=== PATIENT | male | born 1945 | race Caucasian/White ===

== ENCOUNTER → 2017-04-30 16:35 | Outpatient (CLI) | payer MEDICARE ==
[2016-04-07 13:43] VITALS: BMI 40.8
[~2017-04-30 16:35] MED LIST: ADIPEX-P37.5 M1 PO; BAYER CHEWABLE81 MG PO; CHERATUSSIN AC473 ML PO; CIALIS5 MG PO; ELIQUIS2.5 MG PO; HYDROCODONE-APA1 TAB PO; IBUPROFEN800 MG PO; ISORDIL5 MG; ISORDIL5 MG PO; LANTUS INSULIN10 ML SC; LANTUS SOL100 UNIT/1 SC; LASIX20 MG PO; NUCYNTA75 MG PO; OXYCODONE HCL5 MG PO; PLAVIX75 MG PO; PREDNISONE10 MG; PROTONIX40 MG PO; STERAPRED DS 1210 MG PO; SYMBICORT 16010.2 GM INH; VENTOLIN HFA18 GM INH; ZESTRIL20 MG PO; ZITHROMAX250 MG PO
[2017-04-30 17:46] LABS: HEMOGLOBIN A1C 9.7 % (4.8-6.0)
== END | disposition home or self-care (01) ==
LOC: D.LABREF 16:35
PROVIDERS: Family Medicine
DX: E11.9 Type 2 diabetes mellitus without complications (principal)

== ENCOUNTER 2018-07-01 09:12 | Outpatient (CLI) | payer MEDICARE ==
[~2018-07-01] VITALS: Ht 182.9 cm; Wt 139.1 kg
--- NOTE | ~2018-07-01 | HEMODYNAMI ---
PATIENT:IDALIA CASTRO MEDICAL RECORD: [id number] : 49 LOCATION:[facility] ADMISSION DATE: 07/01/18 Generatedon:07/01/201812:57 Patient name: IDALIA CASTRO Patient #: [id number] SSN: : 1945 Date of study: 07/01/2018 Page: Of Hemodynamic Procedure Report Patient Data Patient Demographics Procedure consent was obtained First Name: IDALIA Gender: Male Last Name: MATTHEW : 1945 [facility] Initial: BILL Age: 73 year(s) Patient #: [id number] Race: Additional ID: [id number] Contact details Address: [address] [place] [address] State: [place] City: [facility] Zip code: [address] Past Medical History History of disease Date Diagnosis Comments CAD COPD Allergies: No known allergies Admission Admission Data Admission Date: 07/01/2018 Admission Time: 9:12 Arrival Date: 07/01/2018 Arrival Time: 11:00 Admit Source: Other Insurance Payor: Medicare Height (in.): 72 BSA: 2.63 (m2) Height (cm.): 182.88 BMI: 44.35 (kg/m2) Weight (lbs.): 327 Weight (kg.): 148.32 Lab Results Lab Result Date: 07/01/2018 Lab Result Time: 0:00 Biochemistry Name Units Result Min Max BUN mg/dl 37 --(----)-* 7 18 Creatinine mg/dl 1.4 --(----)*- 0.6 1.3 CBC Name Units Result Min Max Hemoglobin g/dl 13.4 -*(----)-- 13.5 17.5 Procedure Procedure Types Cath Procedure Diagnostic Procedure [facility] w/Coronaries FFR/IVUS Intra-Coronary IVUS Initial Sedation Charges Moderate Sedation up to 15 minutes PCI Procedure Coronary Stent Coronary Stent Initial Procedure Description Procedure Date Procedure Date: 07/01/2018 Procedure Start Time: 12:38 Procedure End Time: 12:56 Procedure Staff Name Function Jairo Ewing MD Performing Physician Suzan Tobar RT Monitor Melita Allen RT Scrub Maximus Arita RN Nurse Procedure Data Cath Procedure Fluoroscopy Diagnostic fluoroscopy Total fluoroscopy Time: 4.2 time: 4.2 min min Diagnostic fluoroscopy Total fluoroscopy dose: dose: 1642 mGy 1642 mGy Contrast Material Contrast Material Type Amount (ml) Isovue 300 92 Entry Location Entry Primary Successful Side Size Upsize Upsize Entry Closure Donahue ccessful Closure Location (Fr) 1 (Fr) 2 (Fr) Remarks Device Remarks Radial Right 6 Fr Mechanical artery Short Compression Estimated blood loss: 10 ml Diagnostic catheters Device Type Used For End Catheter Placement DIAGNOSTIC [place] 110cm 5 Procedure Fr catheter ([id number]) Procedure Complications No complications Procedure Medications Medication Administration Route Dosage Oxygen etCO2 Nasal cannula 2 l/min Lidocaine 2% added to field 20 Heparin Flush Bag added to field 2 bags (1000units/500ml NS) 0.9% NaCl I.V. 100 ml/hr Radial Cocktail I.A. 1 syringe (Verapomil 2mg/Nitro 400mcg/Heparin 1500units) Versed I.V. 1 mg Fentanyl I.V. 50 mcg Heparin Bolus I.V. 4000 units Versed I.V. 1 mg Fentanyl I.V. 50 mcg Hemodynamics Rest BSA: 2.63 (m2) HGB: 13.4 (g/dl) O2 Consumption: Estimated: 311.19 (ml/min) O2 Co nsumption indexed: Estimated:118.32 (ml/min/m) Heart Rate: 77 (bpm) Snapshots Pre Cath Intra NCS Post Cath Vital Signs Time Heart Resp SPO2 etCO2 NIBP Rhythm Pain Sedation Rate (ipm) (%) (mmHg) (mmHg) Status Level (bpm) 12:27:29 74 11 93 0 119/72(92) NSR 0 (11) 10(A) , No pain 12:31:39 77 14 92 29.1 114/73(94) NSR 0 (11) 10(A) , No pain 12:35:53 74 13 95 10.4 122/62(90) NSR 0 (11) 10(A) , No pain 12:40:09 78 13 92 24.6 105/59(85) NSR 0 (11) 9(A) , No pain 12:44:17 85 13 92 18.6 106/54(78) NSR 0 (11) 9(A) , No pain 12:48:29 82 12 94 39.6 110/53(79) NSR 0 (11) 9(A) , No pain 12:52:41 83 13 96 42.6 107/58(73) NSR 0 (11) 10(A) , No pain 12:56:51 80 14 96 12.7 111/60(81) NSR 0 (11) 10(A) , No pain Medications Time Medication Route Dose Verified Delivered Reason Not es Effectiveness by by 12:28:57 Oxygen etCO2 2 l/min Jairoshelly Stroud used for Nasal Gildardo Arita RN procedure cannula 12:29:05 Lidocaine 2% added 20ml Jairo Jairo for local to vial Gildardo Ewing MD anesthetic field 12:29:10 Heparin Flush added 2 bags Jairo Gill used for Bag to Gildardo Ewing MD procedure (1000units/500ml field NS) 12:29:19 0.9% NaCl I.V. 100 Jairoshelly Stroud Per physician ml/hr Gildardo Arita RN 12:29:36 Radial Cocktail I.A. 1 Jairoshelly Gill for (Verapomil syringe Gildardo Ewing MD vasodilation 2mg/Nitro 400mcg/Heparin 1500units) 12:37:31 Versed I.V. 1 mg Jairo Ramosie for sedation Gildardo Arita RN 12:37:39 Fentanyl I.V. 50 mcg Jairo Stroud for sedation Gildardo Arita RN 12:45:50 Heparin Bolus I.V. 4000 Jairo Ramosie for sepideh ified units Gildardo Arita RN anticoagulation with dr ewing 12:46:01 Versed I.V. 1 mg Jairo Stroud for sedation Gildardo Arita RN 12:46:05 Fentanyl I.V. 50 mcg Jairo Stroud for sedation Gildardo Arita RN Procedure Log Time Note 12:16:02 Suzan CARDOZO(R) sent for patient. Start room use. 12:16:03 Time tracking: Regular hours (M-F 7:00 - 5:00) 12:16:07 Plan of Care:Hemodynamics will remain stable., Cardiac rhythm will remain stable., Comfort level will be maintained., Respiratory function will remain adequate., Patient/ family verbilizes understanding of procedure., Procedure tolerated without complication., Recovers from procedure without complications.. 12:16:29 Diagnostic Cath Status : Elective 12:17:24 Patient Height : 72 inches 12:17:29 Patient Weight : 327 lbs 12:17:29 Admit Source: Other 12:18:06 Arrival Date: 07/01/2018 11:00:00 AM 12:18:18 Insurance Payor : Medicare 12:20:04 Lab Result : Hemoglobin 13.4 g/dl 12:20: Lab Result : Creatinine 1.4 mg/dl 12:20:04 Lab Result : BUN 37 mg/dl 12:20:13 Patient received from Pre/Post Procedure Room to CCL 2 Alert and oriented. Tansferred to table in Supine position. 12:20:19 Warm blankets applied, and julien hugger turned on for patient comfort. 12:20:19 Correct patient and procedure confirmed by team. 12:20:22 Signed procedure consent form obtained from patient. 12:20:23 ECG and BP/O2 sat monitors applied to patient. 12:26:28 Vital chart was started 12:28:57 Oxygen 2 l/min etCO2 Nasal cannula was administered by Maximus Arita RN; used for procedure; 12:29:05 Lidocaine 2% 20ml vial added to field was administered by Jairo Ewing MD; for local anesthetic; 12:29:10 Heparin Flush Bag (1000units/500ml NS) 2 bags added to field was administered by Jairo Ewing MD; used for procedure; 12:29:19 0.9% NaCl 100 ml/hr I.V. was administered by Maximus Arita RN; Per physician; 12:29:36 Radial Cocktail (Verapomil 2mg/Nitro 400mcg/Heparin 1500units) 1 syringe I.A. was administered by Jairo Ewing MD; for vasodilation; 12:31:44 Baseline sample Acquired. 12:31:48 Rhythm: sinus rhythm 12:31:50 Full Disclosure recording started 12:32:01 H&P Date Dictated: 06/28/2018 Within 30 days and on chart., H&P Addendum completed by physician on day of procedure. (MUST COMPLETE FOR ALL OUTPATIENTS). 12:32:03 Pre-procedure instructions explained to patient. 12:32:05 Family in waiting room. 12:32:07 Patient NPO since Midnight. 12:32:23 Is the patient allergic to Iodine/contrast media? No. 12:32:24 Was the patient premedicated? Yes 12:32:25 Is patient on blood thinner?Yes 12:32:33 ACC The patient was administered the following blood thiners within the last 24 hours: ACCPlavix 12:32:42 Patient diabetic? Yes. 12:32:44 If diabetic: On Metformin? Yes 12:32:47 If on Metformin: Last Dose? 06/29/2018 12:32:51 Snore? Yes 12:32:54 Sleep apnea? No 12:32:58 Airway obstruction? Yes COPD 12:33:02 Dentures? No ? 12:33:09 IV patent on arrival in left forearm with 0.9% NaCl at [facility]. 12:33:14 Lab results completed and on chart. 12:33:26 Right Radial & Right Groin area was prepped with chlora-prep and draped in sterile fashion 12:33:28 Alarms reviewed by R. N. 12:33:28 Sharps counted by scrub and verified by R.N. 12:33:29 Physician paged 12:36:10 Physician arrived 12:36:10 --------ALL STOP TIME OUT------ 12:36:11 Final Timeout: patient, procedure, and site verified with staff and physician. All members of the team are in agreement. 12:36:14 Right Radial & Right Groin site verified by team. 12:36:19 Physical assessment completed. ASA score P 2 - A patient with mild systemic disease as per Jairo Ewing MD. 12:36:23 Sedation plan: IV Moderate Sedation Medication:Versed, Fentanyl 12:36:25 Zero performed for pressure channel P1 12:37:31 Versed 1 mg I.V. was administered by Maximus Arita RN; for sedation; 12:37:39 Fentanyl 50 mcg I.V. was administered by Maximus Arita RN; for sedation; 12:38:15 Use device set Radial Dx or PCI 12:38:18 Procedure started. 12:38:32 Local anesthetic to right radial artery with Lidocaine 2% by Jairo Ewing MD.INITIAL ACCESS ONLY 12:38:41 A 6 Fr Short sheath was inserted into the Right Radial artery 12:38:45 ACIST Syringe (43439) opened to sterile field. 12:38:45 Medline Cath Pack ([id number]) opened to sterile field. 12:38:46 Bag Decanter (2002) opened to sterile field. 12:38:46 DIAGNOSTIC WIRE .035 260cm J wire (481304) opened to sterile field. 12:38:47 ACIST Hand Control (43751) opened to sterile field. 12:38:48 ACIST Manifold (04816) opened to sterile field. 12:38:48 Tegaderm 4 x 4 (1626W) opened to sterile field. 12:38:49 MBrace Wrist Support ([id number]) opened to sterile field. 12:38:51 NEEDLE Cook 21G 4cm Radial (A58447) opened to sterile field. 12:38:56 SHEATH 6Fr Prelude Radial ([id number]) opened to sterile field. 12:39:01 A DIAGNOSTIC [place] 110cm 5 Fr catheter (606832) was advanced over the wire and used for Procedure. 12:40:32 LV angiography performed. 12:40:54 Catheter removed. 12:41:12 RCA angiography performed. 12:43:44 LCA angiography performed. 12:43:47 Catheter removed. 12:44:08 INFLATOR Merit BasixCompak (KQ6560) opened to sterile field. 12:44:09 CHOICE PT Extra Support 182cm wire ([id number]) opened to sterile field. 12:44:09 [place] IVUS Catheter (61604Y) opened to sterile field. 12:45:00 GUIDE 6FR EBU 3.5 catheter ([id number]) opened to sterile field. 12:45:11 Proceeding to intervention. 12:45:25 6 Fr EBU3.5 guide catheter was inserted over the wire 12:45:31 Choice ex wire advanced. 12:45:50 Heparin Bolus 4000 units I.V. was administered by Maximus Arita RN; for anticoagulation; verified with dr ewing 12:46:01 Versed 1 mg I.V. was administered by Maximus Arita RN; for sedation; 12:46:01 Wire advanced across lesion. 12:46:04 IVUS catheter advanced over wire. 12:46:05 Fentanyl 50 mcg I.V. was administered by Maximus Arita RN; for sedation; 12:48:54 IVUS catheter removed over wire. 12:51:38 Place stent Inflation Number: 1 A AR RX 4.0 x 18 stent ([id number]) was prepped and advanced across the Prox LAD. The stent was deployed at 17 MARCUS for 0:10 (min:sec). 12:51:52 Inflation number: 2 The stent balloon was then re-inflated across the Prox LAD to 13 MARCUS for 0:06 (min:sec). 12:52:01 Inflation number: 3 The stent balloon was then re-inflated across the Prox LAD to 11 MARCUS for 0:06 (min:sec). 12:54:36 Wire removed. 12:54:37 Guide catheter removed. 12:55:09 Sheath removed intact; hemostasis achieved with Mechanical Compression to the Right Radial artery. 12:55:12 Procedure ended.(Physican Out) 12:55:23 Fluoroscopy time 04.20 minutes. 12:55:28 Fluoroscopy dose: 1642 mGy 12:55:28 Flurop Dose total: 1642 12:55:31 Contrast amount:Isovue 300 92ml. 12:55:33 Sharps counted by scrub and verified by R.N. 12:55:35 TR band inflated with 10cc of air. 12:55:36 Insertion/operative site no bleeding no hematoma. 12:55:41 Post-procedure physical assessment completed. ASA score P 2 - A patient with mild systemic disease as per Jairo Ewing MD. 12:55:46 Post procedure rhythm: sinus rhythm 12:55:49 Estimated blood loss: 10 ml 12:55:51 Post procedure instruction explained to patient.Patient verbalizes understanding. 12:56:14 Procedure type changed to Cath procedure, Diagnostic procedure, LHC, LHC w/Coronaries, FFR/IVUS, Intra-Coronary IVUS Initial, Sedation Charges, Moderate Sedation up to 15 minutes, PCI procedure, Coronary Stent, Coronary Stent Initial 12:56:16 Procedure and supply charges have been captured, reviewed, submitted and are correct. 12:56:44 Procedure Complication : No complications 12:56:46 Vital chart was stopped 12:56:47 See physician's report for complete and final results. 12:56:49 Report given to Pre/Post Procedure Room. 12:56:52 Patient transfered to Pre/Post Procedure Room with Stretcher. 12:56:55 Procedure ended. 12:56:55 Full Disclosure recording stopped Intervention Summary Intervention Notes Time ActionType Lesion and Equipment Used Action# Pressure Duration Attributes 12:51:38 Place stent Prox LAD AR RX 4.0 x 1 17 00:10 18 stent ([id number]) 12:51:52 Reinflate Prox LAD AR RX 4.0 x 2 13 00:06 stent 18 stent balloon ([id number]) 12:52:01 Reinflate Prox LAD AR RX 4.0 x 3 11 00:06 stent 18 stent balloon ([id number]) Device Usage Item Name Manufacture Quantity Catalog Number Hospital Part Current Minimal Lot# / Charge Number Stock Stock Serial# Code ACIST Syringe Acist 1 07499 243697 952858 [id number] 20 (72411) Medical Systems Inc Medline Cath Medline 1 [id number] 901019 41802 428874 5 Pack ([id number]) Bag Decanter Microtek 1 2001S 420647 64057 299752 5 () Medical Inc. DIAGNOSTIC WIRE [place] 1 893661 985287 485143 490850 30 .035 260cm J wire (013190) ACIST Hand Acist 1 73689 591388 643929 097730 5 Control (23750) [employer] Systems Inc ACIST Manifold Acist 1 86922 455993 709910 961832 5 (42924) Medical Systems Inc Tegaderm 4 x 4 3M 1 1626W 710470 068673 830805 5 (1626W) MBrace Wrist Advanced 1 140-0250-00 551142 33799 267790 5 Support Vascular ([id number]) Dynamics NEEDLE Cook 21G Cook Medical 1 Z97756 063841 426262 412235 5 4cm Radial (P09454) SHEATH 6Fr Merit 1 [id number] 399289 730032 494301 5 Prelude Radial Medical ([id number]) DIAGNOSTIC Terumo 1 40-5968 226529 793949 698289 5 [place] 110cm 5 Fr catheter (044451) INFLATOR Merit Merit 1 VU3655 119044 869192 744300 15 [place] (AG8052) CHOICE PT Extra [place] 1 [id number] 506930 958690 461423 5 Support 182cm Scientific wire ([id number]) Jayleen Ango 1 [id number] 271070 782998 111732 8 [place] IVUS Catheter (20174D) GUIDE 6FR EBU Medtronic 1 [id number] 245813 07910 750515 3 3.5 catheter ([id number]) AR RX 4.0 x Medtronic 1 [id number] 756813 6006309 397753 5 [id number] 18 stent ([id number]) Signature Audit [place] Stage Time Signature Unsigned Intra-Procedure 07/01/2018 Suzan Tobar 12:57:19 PM RT(R) Signatures Monitor : Suzan Tobar Signature : RT Date : Time : [place] [id number] [place] [address]
--- NOTE | ~2018-07-01 | OP ---
PATIENT NAME: IDALIA CASTRO MEDICAL RECORD: [id number] :49 LOCATION:D.[facility] ADMISSION DATE: SURGEON: MICHEL ROSARIO MD DATE OF OPERATION: 07/01/2018 PROCEDURES: 1. PTCA and stent of LAD. 2. Intravascular ultrasound. 3. Left heart catheterization. 4. Selective coronary angiography. 5. Left ventriculogram. INDICATION: Angina and coronary artery disease. PROCEDURE PERFORMED: After informed consent was obtained and after detailed explanation of risks, benefits as well as alternative therapies, the patient elected to proceed with angiogram and angioplasty. The right radial area was prepped and draped in normal sterile fashion. Right radial artery was cannulated via modified Seldinger technique with placement of 6-Egyptian sheath. All catheters exchanged through this sheath. FINDINGS: The left ventriculogram was performed in standard 30-degree JACOB view, reveals good cardiac wall motion throughout all segments. Overall ejection fraction estimated 60%. SELECTIVE CORONARY ANGIOGRAPHY: 1. Left main is with no significant angiographic disease. 2. Left anterior descending has previously placed stents. Just before the previously placed stents at the ostium, there is 73% stenosis confirmed by intravascular ultrasound. 3. Left circumflex has mild irregularities, but no flow-limiting stenosis. 4. The right coronary artery has mild irregularities, but no flow-limiting stenosis. PTCA AND STENT OF THE LAD: The stent used was a 4.0 x 18-mm [place] stent. Result was 0% residual stenosis. OVERALL IMPRESSION: Successful PTCA and stent of the LAD going from 73% initial stenosis confirmed by intravascular ultrasound to 0% residual. TRANSINT:[id number] Voice Confirmation ID: [id number] DOCUMENT ID: [id number] MICHEL ROSARIO MD at 1914 CC: [id number] DICTATION DATE: 07/01/18 1257 GRASS CUTTER: 07/01/18 1305 [facility] CLI 07/01/18 [facility] [address] [place] [address]
[2018-07-01] MEDS ORDERED: PLAVIX75 MG PO (10:00)
[2018-07-01] MEDS ORDERED: COLACE100 MG PO (10:01)
[2018-07-01] MEDS ORDERED: NEURONTIN600 MG PO (10:02)
[2018-07-01] MEDS ORDERED: TYLENOL #4 W/CO1 TAB PO (10:03)
[2018-07-01] MEDS ORDERED: ISORDIL5 MG PO (10:03)
[2018-07-01] MEDS ORDERED: GLUCOPHAGE1000 MG PO (10:04)
[2018-07-01] MEDS ORDERED: SINGULAIR10 MG PO (10:04)
[2018-07-01] MEDS ORDERED: BACTROBAN CREAM15 GM TOPICAL (10:05)
[2018-07-01 10:19] VITALS: BP 129/65; Ht 182.9 cm; Wt 139.1 kg
[2018-07-01 10:30] LABS: HEMATOCRIT 40.9 % (42.0-54.0); HEMOGLOBIN 13.4 g/dL (13.5-17.5); LYMPHOCYTES 24.4 % (15-50); MCH 31.2 pg (26.0-34.0); MCHC 32.8 g/dL (31.0-37.0); MCV 95.1 fL (80.0-100.0); MEAN PLATELET VOLUME 10.7 fL (7.4-10.4); NEUTROPHILS 63.3 % (40-80); PLATELET COUNT 169 10x3/uL (130-400); RDW 12.4 % (11.5-14.5); WBC 6.1 10x3/uL (4.8-10.8)
[2018-07-01 10:44] LABS: ANION GAP 11.5 mmol/L (8-16); CALCIUM 8.8 mg/dL (8.5-10.1); CARBON DIOXIDE 30.6 mmol/L (21.0-32.0); CREATININE - SERUM 1.4 mg/dL (0.6-1.3); POTASSIUM - SERUM 5.1 mmol/L (3.5-5.1)
[2018-07-01] MEDS ORDERED: BAYER CHEWABLE81 MG PO (13:03)
== END 2018-07-01 17:25 | disposition home or self-care (01) ==
LOC: D.CATH 09:12
PROVIDERS: Internal Medicine Interventional Cardiology
DX: I25.110 Atherosclerotic heart disease of native coronary artery with unstable angina pectoris (principal); R06.02 Shortness of breath
CPT/HCPCS: 93458; 92978; C9600

== ENCOUNTER → 2019-03-07 08:43 | Outpatient (CLI) | payer MEDICARE ==
[2018-07-01 10:19] VITALS: BMI 41.6
--- NOTE | ~2019-03-07 | ST ---
PATIENT:IDALIA CASTRO MEDICAL RECORD: [id number] SEX: M LOCATION:[facility] ORDER #: ADMISSION DATE: 03/07/19 AGE OF PATIENT: 73 REFERRING PHYSICIAN: INTERPRETING PHYSICIAN: MICHEL ROSARIO MD DATE OF SERVICE: 03/07/2019 Nuclear Stress Test INDICATIONS: Angina and coronary artery disease, shortness of breath, hypertension. PROCEDURE IN DETAIL: He was exercised on standard Lexiscan protocol with 33 mCi of sestamibi injected at peak stress and 11 mCi used previously for rest images. FINDINGS: Gated SPECT reveals preserved ejection fraction at 57% with good wall motioning and thickening and brightening throughout all segments. SPECT IMAGING: Cardiolite was used as myocardial perfusion agent. There is a large amount of myocardium involved that risk to reversible ischemia including the inferior apical and septal, which includes the basal, mid apical, and inferior segments, the apex itself, apical septal, mid septal, basal septal. OVERALL IMPRESSION: 1. High-risk nuclear stress test with large amount of myocardium involved with reversible ischemia inferiorly, septally, and apically. 2. Gated SPECT reveals preserved ejection fraction greater than 50% in this patient with ongoing symptomatology, the current scan does suggest presence of hemodynamically significant coronary artery disease. TRANSINT:[id number] Voice Confirmation ID: [id number] DOCUMENT ID: [id number] MICHEL ROSARIO MD CC: STEFANIE SANCHEZ DO [id number] DICTATION DATE: 03/08/191812 SKI PATROL DIRECTOR: 03/09/19 0409 [facility] CLI 03/07/19 [place] [address]
[~2019-03-07 08:43] MED LIST changes: +BACTROBAN CREAM15 GM TOPICAL; +COLACE100 MG PO; +GLUCOPHAGE1000 MG PO; +NEURONTIN600 MG PO; +SINGULAIR10 MG PO; +TYLENOL #4 W/CO1 TAB PO
== END | disposition home or self-care (01) ==
LOC: D.HCCARDIO 08:43
PROVIDERS: ATTEND Internal Medicine Interventional Cardiology
DX: I25.119 Atherosclerotic heart disease of native coronary artery with unspecified angina pectoris (principal)

== ENCOUNTER 2019-03-21 08:59 | Outpatient (CLI) | payer MEDICARE ==
[~2019-03-21] VITALS: Ht 182.9 cm; Wt 139.1 kg
--- NOTE | ~2019-03-21 | HEMODYNAMI ---
PATIENT:IDALIA CASTRO MEDICAL RECORD: [id number] : 49 LOCATION:DSTEF ADMISSION DATE: 03/21/19 Generatedon:03/21/201911:40 Patient name: IDALIA CASTRO Patient #: [id number] SSN: : 1945 Date of study: 03/21/2019 Page: Of Hemodynamic Procedure Report Patient Data Patient Demographics Procedure consent was obtained First Name: IDALIA Gender: Male Last Name: MATTHEW : 1945 [facility] Initial: BILL Age: 73 year(s) Patient #: [id number] Race: Additional ID: [id number] Contact details Address: [address] [place] [address] State: [place] City: [facility] Zip code: [address] Past Medical History History of disease Date Diagnosis Comments CAD COPD Allergies: No known allergies Admission Admission Data Admission Date: 03/21/2019 Admission Time: 8:59 Weight (lbs.): 306.44 Weight (kg.): 139 Lab Results Lab Result Date: 03/21/2019 Lab Result Time: 0:00 Biochemistry Name Units Result Min Max BUN mg/dl 18 --(---*)-- 7 18 Creatinine mg/dl 0.9 --(-*--)-- 0.6 1.3 eGFR ml/min 88.72669 -*(----)-- 90 120 NONAFRICAN CBC Name Units Result Min Max Hematocrit % 44.6 --(*---)-- 42 54 Hemoglobin g/dl 14.9 --(-*--)-- 13.5 17.5 Procedure Procedure Types Cath Procedure Diagnostic Procedure C [facility] w/Coronaries Procedure Description Procedure Date Procedure Date: 03/21/2019 Procedure Start Time: 11:24 Procedure End Time: 11:37 Procedure Staff Name Function Franklin Koehler RN Labor Crew Supervisor Maximus Arita RN Nurse Jairo Ewing MD Performing Physician Edgard Conn RT Scrub Paula Thomas RT Monitor Procedure Data Cath Procedure Fluoroscopy Diagnostic fluoroscopy Total fluoroscopy Time: 3.3 time: 3.3 min min Diagnostic fluoroscopy Total fluoroscopy dose: 280 dose: 280 mGy mGy Contrast Material Contrast Material Type Amount (ml) Isovue 300 63 Entry Location Entry Primary Successful Side Size Upsize Upsize Entry Closure Donahue ccessful Closure Location (Fr) 1 (Fr) 2 (Fr) Remarks Device Remarks Radial Right 6 Fr Mechanical artery Short Compression Estimated blood loss: 5 ml Diagnostic catheters Device Type Used For End Catheter Placement DIAGNOSTIC Burt 110cm 5 Procedure Fr catheter ([id number]) Procedure Complications No complications Procedure Medications Medication Administration Route Dosage Oxygen etCO2 Nasal cannula 2 l/min Lidocaine 2% added to field 20 Heparin Flush Bag added to field 2 bags (1000units/500ml NS) 0.9% NaCl I.V. 100 ml/hr Radial Cocktail I.A. 1 syringe (Verapamil 2mg/Nitro 400mcg/Heparin 1500units) Versed I.V. 2 mg Fentanyl I.V. 100 mcg Versed I.V. 0.5 mg Hemodynamics Rest HGB: 14.9 (g/dl) Heart Rate: 64 (bpm) Snapshots Pre Cath Intra NCS Post Cath Vital Signs Time Heart Resp SPO2 etCO2 NIBP (mmHg) Rhythm Pain Sedation Rate (ipm) (%) (mmHg) Status Level (bpm) 11:18:12 71 24 97 0 160/88(130) NSR (Missing) 10(A) 11:22:41 76 11 92 0 172/88(135) NSR (Missing) 10(A) 11:27:07 79 13 96 0 154/84(120) NSR (Missing) 9(A) 11:31:29 81 10 92 0 138/86(97) NSR (Missing) 9(A) 11:36:28 84 13 97 0 Measuring NSR (Missing) 9(A) 11:36:40 82 13 96 0 150/78(118) NSR (Missing) 10(A) Medications Time Medication Route Dose Verified Delivered Reason Notes Effectiveness by by 11:17:45 Oxygen etCO2 2 l/min Jairo Stroud used for Nasal Gildardo Arita top stitcher cannula 11:17:51 Lidocaine 2% added 20ml Jairo Gill for local to vial Gildardo Ewing MD anesthetic field 11:17:57 Heparin Flush added 2 bags Jairo Gill used for Bag to Gildardo Ewing MD procedure (1000units/500ml field NS) 11:18:06 0.9% NaCl I.V. 100 Jairo Stroud Per ml/hr Gildardo Arita RN physician 11:18:14 Radial Cocktail I.A. 1 Jairo Gill for (Verapamil syringe Gildardo Ewing MD vasodilation 2mg/Nitro 400mcg/Hepari 11:22:14 Versed I.V. 2 mg Jairo Stroud for sedation Gildardo Arita RN 11:22:20 Fentanyl I.V. 100 mcg Jairo Stroud for sedation Gildardo Arita RN 11:31:55 Versed I.V. 0.5 mg Jairo Stroud for sedation Gildardo Arita RN Procedure Log Time Note 10:56:19 Signed procedure consent form obtained from patient. 10:56:21 Diagnostic Cath status Elective 10:56:21 Time tracking: Regular hours (M-F 7:00 - 5:00) 10:56:25 Plan of Care:Hemodynamics will remain stable., Cardiac rhythm will remain stable., Comfort level will be maintained., Respiratory function will remain adequate., Patient/ family verbilizes understanding of procedure., Procedure tolerated without complication., Recovers from procedure without complications.. 10:56:33 H&P Date Dictated: 02/27/2019 Within 30 days and on chart., H&P Addendum completed by physician on day of procedure. (MUST COMPLETE FOR ALL OUTPATIENTS). 10:56:38 Patient allergic to MORPHINE, DILAUDID 10:57:34 Patient Weight : 306.44 lbs 11:01:10 Paula Thomas RT(R) sent for patient. Start room use. 11:06:33 Patient received from Pre/Post Procedure Room to CCL 3 Alert and oriented. Tansferred to table in Supine position. 11:06:34 Warm blankets applied, and julien hugger turned on for patient comfort. 11:06:34 Correct patient and procedure confirmed by team. 11:06:36 Pre-procedure instructions explained to patient. 11:06:36 ECG and BP/O2 sat monitors applied to patient. 11:06:37 Pre-op teaching completed and patient verbalized understanding. 11:06:38 Family in waiting room. 11:06:39 Patient NPO since Midnight. 11:16:52 Vital chart was started 11:16:55 Baseline sample Acquired. 11:16:59 Rhythm: sinus rhythm 11:17:01 Full Disclosure recording started 11:17:04 Is patient on blood thinner?No 11:17:06 Patient diabetic? No. 11:17:09 Previous problem with sedation/anesthesia? No ? 11:17:15 Snore? Yes 11:17:16 Sleep apnea? No 11:17:21 Opens mouth fully? Yes 11:17:21 Deviated septum? No 11:17:22 Sticks out tongue? Yes 11:17:25 Airway obstruction? No ? 11:17:28 Dentures? Yes IN 11:17:31 Modified Rell's test Ulnar < 7 seconds 11:17:34 Patient pain scale 0/10 ?. 11:17:39 IV patent on arrival in left hand with 0.9% NaCl at [facility]. 11:17:45 Oxygen 2 l/min etCO2 Nasal cannula was administered by Maximus Arita RN; used for procedure; 11:17:51 Lidocaine 2% 20ml vial added to field was administered by Jairo Ewing MD; for local anesthetic; 11:17:57 Heparin Flush Bag (1000units/500ml NS) 2 bags added to field was administered by Jairo Ewing MD; used for procedure; 11:18:06 0.9% NaCl 100 ml/hr I.V. was administered by Maximus Arita RN; Per physician; 11:18:14 Radial Cocktail (Verapamil 2mg/Nitro 400mcg/Heparin 1500units) 1 syringe I.A. was administered by Jairo Ewing MD; for vasodilation; 11:18:24 Lab Result : Hemoglobin 14.9 g/dl 11:18:24 Lab Result : Hematocrit 44.6 % 11:18:24 Lab Result : eGFR NONAFRICAN 88.87019 ml/min 11:18:24 Lab Result : BUN 18 mg/dl 11:18:24 Lab Result : Creatinine 0.9 mg/dl 11:18:28 Lab results completed and on chart. 11:18:33 Right Radial & Right Groin area was prepped with chlora-prep and draped in sterile fashion 11:18:34 Sharps counted by scrub and verified by R.N. 11:18:34 Alarms reviewed by R. N. 11:18:36 Use device set Radial Dx or PCI 11:18:37 ACIST Syringe (46633) opened to sterile field. 11:18:39 Bag Decanter (2002S) opened to sterile field. 11:18:40 Tegaderm 4 x 4 (1626W) opened to sterile field. 11:18:40 ACIST Manifold (55447) opened to sterile field. 11:18:40 ACIST Hand Control (67444) opened to sterile field. 11:18:44 MBrace Wrist Support ([id number]) opened to sterile field. 11:18:44 Medline Cath Pack ([id number]) opened to sterile field. 11:18:49 SHEATH 6FR RAIN (1618274) opened to sterile field. 11:19:05 DIAGNOSTIC WIRE .035 260cm J wire (423238) opened to sterile field. 11:21:56 --------ALL STOP TIME OUT------ 11:21:57 Final Timeout: patient, procedure, and site verified with staff and physician. All members of the team are in agreement. 11:21:58 Right Radial & Right Groin site verified by team. 11:22:01 Fire Safety Assessment: A--An alcohol-based skin anteseptic being used preoperatively., C--Open oxygen or nitrous oxide is being used., D--An ESU, laser, or fiber-optic light is being used. 11:22:11 Physical assessment completed. ASA score P 2 - A patient with mild systemic disease as per Jairo Ewing MD. 11:22:14 Versed 2 mg I.V. was administered by Maximus Arita RN; for sedation; 11:22:20 Fentanyl 100 mcg I.V. was administered by Maximus Arita RN; for sedation; 11:22:33 Maximum allowable contrast does (3.7 X eGFR X 0.75)244 ml. 11:22:37 2) 60-89 Mildly reduced kidney function, and other findings (as for stage 1) point to kidney disease. 11:22:40 Sedation plan: IV Moderate Sedation Medication:Versed, Fentanyl 11:24:36 Zero performed for pressure channel P1 11:24:39 Procedure started. 11:24:50 Local anesthetic to right radial artery with Lidocaine 2% by Jairo Ewing MD.INITIAL ACCESS ONLY 11:26:40 A 6 Fr Short sheath was inserted into the Right Radial artery 11:28:00 A DIAGNOSTIC Burt 110cm 5 Fr catheter (518191) was advanced over the wire and used for Procedure. 11:29:10 GLIDE WIRE ANGLE 260cm ([id number]) opened to sterile field. 11:29:35 GLIDE WIRE USED TO ADVANCE CATHETER 11:31:01 LV gram done using JACOB 11:31:03 Injector settings: Ml/sec: 7, Volume: 15, 11:31:25 EF : 55 % 11:31:49 RCA angiography performed. 11::55 Versed 0.5 mg I.V. was administered by Maximus Arita RN; for sedation; 11:33:08 LCA angiography performed. 11:33:22 Catheter removed. 11:33:54 Procedure ended.(Physican Out) 11:34:15 TR BAND Large ([id number]) opened to sterile field. 11:34:26 Sheath removed intact; hemostasis achieved with Mechanical Compression to the Right Radial artery. 11:34:37 Fluoroscopy time 03.30 minutes. 11:34:43 Fluoroscopy dose: 280 mGy 11:34:43 Flurop Dose total: 280 11:34:46 Contrast amount:Isovue 300 63ml. 11:35:24 Sharps counted by scrub and verified by R.N. 11:35:32 TR band inflated with 9cc of air. 11:35:34 Post-procedure physical assessment completed. ASA score P 2 - A patient with mild systemic disease as per Jairo Ewing MD. 11:35:37 Post procedure rhythm: sinus rhythm 11:35:39 Estimated blood loss: 5 ml 11:35:40 Patient needs reinforcement of post procedure teaching. 11:35:40 Post procedure instruction explained to patient.Patient verbalizes understanding. 11:37:27 Procedure and supply charges have been captured, reviewed, submitted and are correct. 11:37:32 Procedure Complication : No complications 11:37:34 Vital chart was stopped 11:37:46 See physician's report for complete and final results. 11:37:49 Report given to Pre/Post Procedure Room. 11:37:52 Patient transfered to Pre/Post Procedure Room with Bed. 11:37:54 Full Disclosure recording stopped 11:37:54 Procedure ended. 11:37:57 End room use (Document Last) Device Usage Item Name Manufacture Quantity Catalog Hospital Part Current Minima l Lot# / Number Charge Number Stock Stock Serial# Code ACIST Acist 1 94930 088501 923204 473993 20 Syringe Medical (30369) Systems Inc Bag Microtek 1 2001S 343131 25462 083994 5 Decanter Medical Inc. () ACIST Hand Acist 1 99404 398938 117495 483116 5 Control Medical (28868) Systems Inc ACIST Acist 1 22023 077532 403667 115189 5 Manifold Medical (59332) Systems Inc Tegaderm 4 3M 1 1626W 606887 742204 119343 5 x 4 (1626W) Medline Medline 1 [id number] 075255 17457 613148 5 Cath Pack ([id number]) MBrace Advanced 1 140-0250-00 463364 30238 937860 5 Wrist Vascular Support Dynamics ([id number]) SHEATH 6FR Cardinal 1 6178268 254205 5935583 394432 5 [facility] (1821067) DIAGNOSTIC [facility] 1 362674 558629 748094 388013 30 WIRE .035 260cm J wire (349401) DIAGNOSTIC Terumo 1 40-7494 408848 164836 014689 5 Burt 110cm 5 Fr catheter (687765) GLIDE WIRE Terumo 1 RL1129 399132 300825 629674 5 ANGLE 260cm (YT4144) TR BAND Terumo 1 [id number] 220401 752783 201935 40 Large ([id number]) Signature Audit [place] Stage Time Signature Unsigned Intra-Procedure 03/21/2019 Paula Thomas 11:38:41 AM RT(R) RT(R) 03/21/2019 11:40:24 AM Intra-Procedure 03/21/2019 Paula Thomas 11:40:44 AM RT(R) Signatures Nurse : Maximus Arita RN Signature : Date : Time : Performing Physician : Signature : Jairo Ewing MD Date : Time : Monitor : Paula Thomas Signature : RT Date : Time : [address] [place] [address]
--- NOTE | ~2019-03-21 | OP ---
PATIENT NAME: IDALIA CASTRO MEDICAL RECORD: [id number] :49 LOCATION:D.CAT ADMISSION DATE: SURGEON: MICHEL ROSARIO MD DATE OF OPERATION: 03/21/2019 PROCEDURES: 1. Left heart catheterization. 2. Selective coronary angiography. 3. Left ventriculogram. INDICATION: Angina, coronary artery disease, shortness of breath, obesity, abnormal nuclear stress test. PROCEDURE IN DETAIL: After informed consent was obtained and after a detailed description of the risks, benefits as well as alternative therapies, the patient elected to proceed with angiogram and heart catheterization. The right radial area was prepped and draped in normal sterile fashion. Right radial artery was cannulated via modified Seldinger technique with placement of 5-Lao sheath. All catheters exchanged through this sheath. FINDINGS: The left ventriculogram was performed in standard 30-degree JACOB view, reveals good cardiac wall motion, ejection fraction is 60%. SELECTIVE CORONARY ANGIOGRAPHY: 1. Left main is with no significant angiographic disease. 2. Left anterior descending has previously placed stents, these are widely patent with no significant restenosis. No disease elsewise throughout the LAD or its branches. 3. Left circumflex has moderate irregularities, but no flow-limiting stenosis. 4. Right coronary artery has moderate irregularities, but no flow-limiting stenosis. OVERALL IMPRESSION: Wide patency of the previously placed stents, no disease elsewise. Continue medical management of the coronary artery disease and cardiac risk factors. TRANSINT:[id number] Voice Confirmation ID: [id number] DOCUMENT ID: [id number] MICHEL ROSARIO MD CC: [id number] DICTATION DATE: 03/21/19 1147 STONEWORK SUPERVISOR: 03/21/19 1154 REG [facility] [address] [place] [address]
[2019-03-21] MEDS ORDERED: TRESIBA FL100 UNIT/1 SC (09:33)
[2019-03-21] MEDS ORDERED: CRESTOR10 MG PO (09:33)
[2019-03-21 09:56] VITALS: Ht 182.9 cm; Wt 139.1 kg
[2019-03-21 10:20] LABS: CALC OSMOLALITY 284 mosm/kg (275-300); CALCIUM 8.6 mg/dL (8.5-10.1); CARBON DIOXIDE 28.6 mmol/L (21.0-32.0); CHLORIDE - SERUM 105 mmol/L (98-107); CREATININE - SERUM 0.9 mg/dL (0.6-1.3); GLUCOSE 130 mg/dL (74-106); POTASSIUM - SERUM 4.5 mmol/L (3.5-5.1); SODIUM 141 mmol/L (136-145); UREA NITROGEN 18 mg/dL (7-18); eGFR NON AFRICAN AMERICAN 88 mL/min (90-120)
[2019-03-21 10:24] LABS: BASOPHILS 0.5 % (0-2); EOSINOPHILS 2.1 % (0-7); HEMATOCRIT 44.6 % (42.0-54.0); HEMOGLOBIN 14.9 g/dL (13.5-17.5); IMMATURE GRANULOCYTES 0.2 % (0-5); LYMPHOCYTES 26.3 % (15-50); MCH 31.3 pg (26.0-34.0); MCHC 33.4 g/dL (31.0-37.0); MCV 93.7 fL (80.0-100.0); MEAN PLATELET VOLUME 11.1 fL (7.4-10.4); MONOCYTES 9.9 % (2-11); PLATELET COUNT 179 10x3/uL (130-400); RBC 4.76 10x6/uL (4.20-6.10); RDW 13.8 % (11.5-14.5); WBC 8.5 10x3/uL (4.8-10.8)
--- NOTE | 2019-03-21 12:35 | NUR ---
1200 PT ALERT AND DENIES ANY C/O. TR BAND IS CDI, WRIST IMMOBILIZER IN PLACE. VSS. SANDWICH SERVED. DR ROSARIO HAS ROUNDED ON PT. 1230 PT ARVIN SANDWICH WITH NO C/O NAUSEA. TR BAND IS CDI, FINGERS WARM AND CAP REFILL IS BRISK. PT DENIES ANY NV DEFICIT.
--- NOTE | 2019-03-21 12:52 | NUR ---
PT HAS TOLERATED SANWICH AND PO FLUIDS WITH NO NAUSEA. ATTEMPTED TO WEAN AIR FROM TR ABND WITH IMMEDICATE OOZING, AIR REINSTILLED AND OOZING CEASED. PT SITTING UP IN BED VISITING WITH , DENIES ANY C/O. VSS.
--- NOTE | 2019-03-21 13:27 | NUR ---
1315 3 CC OF AIR WEANED FROM TR BAND WITH NO BLEEDING NOTED, FINGERS WARM AND CAP REFILL IS BRISK. PT ALERT AND DENIES ANY C/O. 1325 3 CC OF AIR WEANED FROM TR BAND WITH NO BLEEDING NOTED. FINGERS WARM AND CAP REFILL IS BRISK.
--- NOTE | 2019-03-21 13:51 | NUR ---
ALL REMAINING AIR WEANED FROM TR BAND WITH NO BLEEDING NOTED. IV DC'D WITH CATH INTACT. DC INSTRUCTIONS HAVE BEEN REVIEWED WITH PT AND WHO VERBALIZE UNDERSTANDING.
--- NOTE | 2019-03-21 14:08 | NUR ---
1352 TR BAND REMOVED AND 2X2, TEGADERM PLACED TO CATH SITE. FINGERS WARM AND RADIAL PULSE PALPABLE. PT IS ALERT AND DENIES ANY C/O. WRIST IMMOBILIZER IN PLACE.
--- NOTE | 2019-03-21 14:09 | NUR ---
1405 PT HAS DRESSED FOR DC TO HOME. IS ALERT AND DENIES ANY C/O. PT ESCORTED TO PRIVATE AUTO VIA WC WITH DRIVING HIM HOME.
== END 2019-03-21 14:05 | disposition home or self-care (01) ==
LOC: D.CATH 08:59
PROVIDERS: ATTEND Internal Medicine Interventional Cardiology
DX: I25.119 Atherosclerotic heart disease of native coronary artery with unspecified angina pectoris (principal); Z95.5 Presence of coronary angioplasty implant and graft; E66.9 Obesity, unspecified; Z01.812 Encounter for preprocedural laboratory examination